=== PATIENT | female | born 1985 | race Caucasian/White ===

== ENCOUNTER → 2017-08-17 | Outpatient (CLI) | payer OTHER ==
--- NOTE | 2017-08-17 14:17 | FL ---
EXAMINATION TYPE: FL UGI air DATE OF EXAM: 08/17/2017 COMPARISON: NONE HISTORY: Abdominal pain TECHNIQUE: A double contrast UGI study is performed. FINDINGS: Esophagus dilates to normal caliber has normal contour to the gastroesophageal junction. Gastroesopha geal junction opens to normal caliber. No intraluminal or extramural defects are evident. The horizon nitish drinking position there is complete stripping of the esophageal bolus. No reflux was evident. Fundus body and antrum of the stomach appear unremarkable. Barium readily empties into the normally p ositioned duodenal cap and sweep. 1 minute 18 seconds fluoroscopy time was provided for the procedure. 21 images are obtained. IMPRESSION: 1. Normal upper GI. 2. Duodenal folds appear to be at the upper limits of normal. Early or mild duodenitis could be consi dered. Consider correlation for H. pylori.
== END | disposition home or self-care (01) ==
LOC: RADFLMAIN 07:58
PROVIDERS: ATTEND Family Medicine
DX: R10.9 Unspecified abdominal pain (principal)
CPT/HCPCS: 74246

== ENCOUNTER 2023-12-24 21:17 | Inpatient (IN) | payer OTHER ==
[~2023-12-24 21:17] MED LIST: KETOROLAC 15 MG/ML 1 ML VIAL ONE; SODIUM CHLORIDE 0.9% 1,000 ML BAG ONE
[2023-12-24] MEDS ORDERED: cefTRIAXone 2 GM VIAL ONE (21:59)
[2023-12-24] MEDS ORDERED: AZITHROMYCIN 500 MG VIAL IVPB ONE (22:46)
[2023-12-24] MEDS ORDERED: SODIUM CHLORIDE 0.9% 250 ML BAG ONE (22:47)
[2023-12-24] MEDS ORDERED: FAMOTIDINE 20 MG/2 ML VIAL ONE (23:59)
[2023-12-24] MEDS ORDERED: SODIUM CHLORIDE 0.9% 50 ML BAG ONE (23:59)
[2023-12-25] MEDS ORDERED: ACETAMINOPHEN TAB 325 MG TAB ONE (05:43)
[2023-12-25] MEDS ORDERED: IPRATROPIUM-ALBUTEROL 3 ML NEB ONE ×3 (07:46→23:59)
[2023-12-25] MEDS ORDERED: diphenhydrAMINE 50 MG/ML 1 ML VIAL ONE ×2 (15:16→20:34)
[2023-12-25] MEDS ORDERED: methylPREDNISolone SOD SUCCI 125 MG/2 ML VIAL ONE (15:17)
[2023-12-25] MEDS ORDERED: HEPARIN SODIUM,PORCINE 5,000 UNIT/ML 1 ML VIAL ONE (20:34)
[2023-12-25] MEDS ORDERED: cefTRIAXone 2 GM VIAL ONE (20:35)
[2023-12-25] MEDS ORDERED: SODIUM CHLORIDE 0.9% 50 ML BAG ONE (23:59)
[2023-12-26] MEDS ORDERED: diphenhydrAMINE 50 MG/ML 1 ML VIAL ONE ×3 (05:36→20:20)
[2023-12-26] MEDS ORDERED: PANTOPRAZOLE 40 MG TABLET PO ONE (05:36)
[2023-12-26] MEDS ORDERED: IPRATROPIUM-ALBUTEROL 3 ML NEB ONE (08:37)
[2023-12-26] MEDS ORDERED: HEPARIN SODIUM,PORCINE 5,000 UNIT/ML 1 ML VIAL ONE ×2 (08:59→20:20)
[2023-12-26] MEDS ORDERED: FUROSEMIDE 10 MG/ML 4 ML VIAL ONE (13:58)
[2023-12-26] MEDS ORDERED: methylPREDNISolone SOD SUCCI 125 MG/2 ML VIAL ONE (18:46)
[2023-12-26] MEDS ORDERED: SODIUM CHLORIDE 0.9% 1,000 ML BAG ONE (23:59)
[2023-12-26] MEDS ORDERED: SODIUM CHLORIDE 0.9% 250 ML BAG ONE (23:59)
[2023-12-27] MEDS ORDERED: methylPREDNISolone SOD SUCCI 125 MG/2 ML VIAL ONE ×3 (06:20→17:29)
[2023-12-27] MEDS ORDERED: diphenhydrAMINE 50 MG/ML 1 ML VIAL ONE ×3 (06:20→22:44)
[2023-12-27] MEDS ORDERED: HEPARIN SODIUM,PORCINE 5,000 UNIT/ML 1 ML VIAL ONE ×2 (09:43→22:44)
[2023-12-27] MEDS ORDERED: SODIUM CHLORIDE 0.9% 250 ML BAG ONE (23:59)
[2023-12-28] MEDS ORDERED: methylPREDNISolone SOD SUCCI 125 MG/2 ML VIAL ONE ×3 (01:16→17:50)
[2023-12-28] MEDS ORDERED: IPRATROPIUM-ALBUTEROL 3 ML NEB ONE (04:28)
[2023-12-28] MEDS ORDERED: PANTOPRAZOLE 40 MG TABLET PO ONE (08:51)
[2023-12-28] MEDS ORDERED: HEPARIN SODIUM,PORCINE 5,000 UNIT/ML 1 ML VIAL ONE (08:51)
[2023-12-28] MEDS ORDERED: methylPREDNISolone SOD SUCCI 40 MG/ML 1 ML VIAL ONE (14:08)
[2023-12-29] MEDS ORDERED: HEPARIN SODIUM,PORCINE 5,000 UNIT/ML 1 ML VIAL ONE (00:54)
[2023-12-29] MEDS ORDERED: diphenhydrAMINE 50 MG/ML 1 ML VIAL ONE (00:54)
[2023-12-29] MEDS ORDERED: methylPREDNISolone SOD SUCCI 125 MG/2 ML VIAL ONE ×2 (00:58→05:10)
[2023-12-29] MEDS ORDERED: IPRATROPIUM-ALBUTEROL 3 ML NEB ONE (04:53)
[2023-12-29] MEDS ORDERED: PANTOPRAZOLE 40 MG TABLET PO ONE (09:11)
--- NOTE | 2024-01-21 19:10 | US ---
Patient Nikia Hirsch ID [id number] Order # EXAMINATION TYPE: US abdomen limited DATE OF EXAM: 12/27/2023 COMPARISON: Comparisons are not available on downtime PACS. INDICATION: Abnormal CT, cholelithiasis, adenomyomatosis. EXAM findings: Head and proximal body the pancreas is normal. Distal tail the pancreas is limited due to bowel gas. Liver has normal echotexture without discrete masses or cysts. Liver measures 17.7 cm which is mildly prominent. Normal less than 15.5 cm. No discrete mass is evident. No biliary dilatation evident. Gallbladder has echogenic foci with posterior shadowing. No gallbladder wall thickening is evident. N o pericholecystic fluid evident. Common bile duct is normal at 0.42 cm. Right kidney measures 10.8 x 3.5 x 4.6 cm. No masses cysts or hydronephrosis evident. IMPRESSION: 1. Cholelithiasis. No suspicious changes to suggest acute cholecystitis.
--- NOTE | 2024-01-23 12:22 | CT ---
SPENCER BARRERA : 1985 EXAM: CT brain without contrast. DATE: 12/24/2023 20:07 INDICATION: Patient age: Reason for study: AMS COMPARISON: None, please note PACS downtime occurred during the radiologist interpretation of these i mages with limited priors/reports.. TECHNIQUE: Multiple axial CT images of the brain were obtained without IV contrast. One or more CT do se reduction strategies were utilized during this examination. Total DLP administered was 1036.9 mGycm. FINDINGS: Extra-axial spaces: No abnormal extra-axial fluid collections. Ventricular system: Within normal limits Cerebral parenchyma: No acute intraparenchymal hemorrhage or mass effect. The snyder-white junction is well differentiated. Cerebellum: Unremarkable. Mass effect: No evidence of midline shift. Intracranial vasculature: unremarkable Soft tissues: Normal. Calvarium/osseous structures: No depressed skull fracture. Paranasal sinuses and mastoid air cells: Clear. Visualized orbits: Orbital contents are intact. IMPRESSION: No acute intracranial process.
--- NOTE | 2024-01-23 12:22 | CT ---
SPENCER BARRERA : 1985 EXAM: CT abdomen and pelvis with IV contrast. DATE: 12/24/2023 19:55 INDICATION: Patient age: Reason for study: abdominal pain, nausea, vomiting. COMPARISON: None, please note PACS downtime occurred during the radiologist interpretation of these i mages with limited priors/reports.. TECHNIQUE: CT abdomen and pelvis with IV contrast. with axial imaging and sagittal and coronal reformats followi ng the administration of 100 cc of Omnipaque 350 IV contrast material.. One or more CT dose reduction strategies were utilized during this examination. Total DLP administered was 1616.5 mGycm. FINDINGS: LOWER CHEST: Left lower lobe patchy airspace opacities. ABDOMEN LIVER: Unremarkable GALLBLADDER AND BILE DUCTS: Incompletely distended with multiple gallstones in the gallbladder lumen. PANCREAS: Unremarkable. SPLEEN: Unremarkable. ADRENAL GLANDS: Unremarkable. KIDNEYS AND URETERS: No evidence of hydronephrosis or renal calculus. The ureters are unremarkable. PELVIS BLADDER: Unremarkable REPRODUCTIVE: Tubular structure near the right ovarian measuring 36 x 22 x 86 mm There may be curvili near suture noted along this cystic structure. ABDOMEN & PELVIS STOMACH AND BOWEL: Stomach and duodenum are unremarkable. No evidence of bowel obstruction. Large am ount stool in the colon. The appendix is normal. PERITONEUM: No evidence of pneumoperitoneum or free fluid. VASCULATURE: No evidence of aortic aneurysm. MUSCULOSKELETAL: No acute osseous abnormalities LYMPH NODES: No gross evidence for lymphadenopathy. SOFT TISSUE/ABDOMINAL WALL: Unremarkable IMPRESSION: 1. Left lower lobe pneumonia. 2. Cholelithiasis with irregular appearance the gallbladder wall. Chronic for signs and symptoms of c holecystitis. Alternatively findings may represent adenomyomatosis. Clinical correlation advised. 3. Tubular structure in the right adnexa possibly representing a dilated fallopian tube versus postsu rgical lymphangioma. Clinical correlation advised.
--- NOTE | 2024-01-25 14:06 | XR ---
SPENCER BARRERA : 1985 EXAM: One view of the chest. DATE: 12/24/2023 20:19 INDICATION: Reason for study: N/V, weakness COMPARISON: . Same day CT. TECHNIQUE: One view of the chest Frontal view of the chest. FINDINGS: Lungs/Pleura: Airspace opacities in left lower lobe better appreciated on same day CT. There is no ev idence of pleural effusion, focal consolidation, or pneumothorax. Pulmonary vascularity: Unremarkable. Heart/mediastinum: Cardiomediastinal silhouette is unremarkable. Musculoskeletal: No acute osseous pathology. Other findings: No significant findings. IMPRESSION: .Left lower lobe airspace disease
--- NOTE | 2024-01-30 09:54 | XR ---
EXAMINATION TYPE: XR chest 1V portable DATE OF EXAM: 01/30/2024 COMPARISON: 12/24/2023 INDICATION: Pneumonia TECHNIQUE: Single frontal view of the chest is obtained. FINDINGS: The heart size is normal. The pulmonary vasculature is normal. The lungs are clear. IMPRESSION: 1. No acute pulmonary process. Follow-up be performed as clinically indicated. [facility], , 01/30/2024 9:51 AM
--- NOTE | 2024-02-09 14:39 | CONS ---
CONSULTATION LOCATION: [address], 4th floor. REASON FOR CONSULTATION: Sepsis, pneumonia. HISTORY OF PRESENT ILLNESS: The patient is a 38-year-old female, who presented to the hospital after apparently the patient did pass out at home. The patient mentioned she has not been feeling well over the last few days. She has been complaining of generalized body aches and not feeling well. The patient did have some nausea, but did not have any vomiting or abdominal pain. No diarrhea or constipation. The patient also complaining of cough, moderate in intensity, but mostly dry in nature. No significant purulent chest pain. The patient did have some headache initially that seemed to have improved, but no photophobia or URI symptoms. With these symptoms, the patient has been evaluated on presentation to the hospital. The patient did have CT of the chest, abdomen, and pelvis, which shows evidence of left lower lobe pneumonia. Cholelithiasis with interval appearance of the gallbladder wall concerning for possible cholecystitis and there was concern for dilated fallopian tube. The patient has been admitted to the hospital. She was started on Rocephin and Zithromax. Infectious Disease was consulted for further management of antibiotic therapy. REVIEW OF SYSTEMS: Positive points have been mentioned in HPI. Rest of systems are negative. PAST MEDICAL HISTORY: Reviewed. PAST SURGICAL HISTORY: Reviewed. FAMILY HISTORY: Reviewed. SOCIAL HISTORY: Reviewed. MEDICATIONS: Currently include the patient is on Rocephin 2 g daily. She is on; 1. Zithromax. 2. DuoNeb. 3. Tylenol. 4. Heparin subcu. 5. Protonix. 6. IV fluid. PHYSICAL EXAMINATION: VITAL SIGNS: Her blood pressure is 113/74 with a pulse of 74, temperature of 97.7, . GENERAL DESCRIPTION: This is a middle-aged female, lying in bed, in no distress. No tachypnea or accessory muscle of respiration use. HEENT: Shows no pallor or scleral icterus. Oral mucous membranes are dry. NECK: Trachea is central. No thyromegaly. LUNGS: Unlabored breathing. Coarse crackles at the left base. No wheeze. HEART: S1, S2. Regular rate and rhythm. ABDOMEN: Soft. No tenderness. No guarding or rigidity. EXTREMITIES: No edema. Feet examination, no rash or masses palpable. NEUROLOGIC: The patient is awake, alert and oriented x3. Mood and affect normal. LABORATORY DATA: . Free T4 is 1.28. Ammonium lactate is 1.4. The patient did have a . Electrolytes are normal. Normal liver enzymes are normal. Hemoglobin is 13.4, white count 8.1. IMAGING STUDIES: CT of abdomen and pelvis report as mentioned in HPI. ASSESSMENT AND PLAN: 1. The patient presented to the hospital with generalized weakness, body aches, headache, also have cough with evidence of left lower lobe pneumonia. Abnormal finding on the clinic examination suspicious for left lower lobe pneumonia, likely community-acquired. 2. Try to obtain sputum for Gram stain, cultures. Check urine for Legionella antigen. 3. Rocephin 2 g continue while waiting for the workup to be completed. Thank you for this consultation. We will follow this patient along with you. NATHANAELL / IJN: [id number] /
--- NOTE | 2024-02-09 14:40 | PN ---
PROGRESS NOTE LOCATION: 463. INTERVAL HISTORY: The patient is afebrile. The patient mentioned feeling better. She is breathing comfortably. No chest pain or shortness of breath. Cough decreased in intensity, remains to be dry in nature. No nausea or vomiting. No abdominal pain or diarrhea. PHYSICAL EXAMINATION: VITAL SIGNS: Blood pressure 113/57, pulse of 63, temperature 98.1. GENERAL DESCRIPTION: This is a middle-aged female, lying in bed, in no distress. RESPIRATORY SYSTEM: Unlabored breathing, decreased intensity of the breath sounds. No wheeze. HEART: S1, S2. Regular rate and rhythm. ABDOMEN: Soft, no tenderness. LABORATORY DATA: White count is normal. DIAGNOSTIC IMPRESSION AND PLAN: The patient presented to the hospital with weakness, syncopal episode, and this patient has been diagnosed with left lower lobe pneumonia, likely community acquired, clinically responding to the Rocephin and Zithromax, finishing therapy of oral Ceftin. Questions and concerns were answered. MMODL / IJN: [id number] /
--- NOTE | 2024-02-09 14:40 | PN ---
PROGRESS NOTE DATE OF SERVICE: 12/27/2023 LOCATION: [address] REASON FOR FOLLOWUP: Left lower lobe pneumonia. INTERVAL HISTORY: The patient is afebrile. The patient is breathing comfortably. She could have a cough in moderate intensity, but not able to bring up any sputum. Denies any nausea, vomiting. No abdominal pain. No diarrhea. PHYSICAL EXAMINATION: VITAL SIGNS: Blood pressure 125/70 with a pulse of 55, temperature is 97.8. She is 96% on room air. GENERAL: The patient is a middle-aged female, lying in bed, in no distress. RESPIRATORY SYSTEM: Unlabored breathing, decreased breath sounds at bases. No wheeze. HEART: S1, S2. Regular rate. ABDOMEN: Soft. No tenderness. EXTREMITIES: No edema of the feet. LABORATORY DATA: Cultures are currently pending. DIAGNOSTIC IMPRESSION AND PLAN: The patient has left lower lobe pneumonia, likely community-acquired, seemed to have clinically responded to the Rocephin and Zithromax. Continue to try to bring up the sputum. Follow up on the blood work. Questions were answered. MMODL / IJN: [id number] /
--- NOTE | 2024-02-10 15:25 | PN ---
PROGRESS NOTE LOCATION: 463. REASON FOR FOLLOWUP: Left lower lobe pneumonia. INTERVAL HISTORY: The patient is afebrile. The patient is breathing comfortably on room air. The patient denies having any chest pain or shortness of breath. Cough decreased in intensity. No nausea, vomiting. No abdominal pain or diarrhea. PHYSICAL EXAMINATION: VITAL SIGNS: Blood pressure 104/69, pulse of 97, temperature 98, she is 98% on room air. GENERAL APPEARANCE: The patient is a middle-aged female, lying in bed, in no distress. RESPIRATORY SYSTEM: Unlabored breathing, decreased breath sounds in the bases. No wheeze. HEART: S1, S2. Regular rate and rhythm. ABDOMEN: Soft. No tenderness. LABORATORY DATA: Creatinine 0.63. White count is 10.63. Blood, sputum culture as well as urine for Legionella antigen is pending. DIAGNOSTIC IMPRESSION AND PLAN: Patient with left lower lobe pneumonia, likely community-acquired. The patient is currently on Levaquin and Zithromax. We will discontinue Zithromax. Continue Levaquin. Plan to finish therapy with oral Levaquin and close outpatient followup. MMODL / IJN: [id number] /
--- NOTE | 2024-02-16 15:12 | CONS ---
CONSULTATION REASON FOR CONSULTATION: Abdominal pain. HISTORY OF PRESENT ILLNESS: This is a female who is admitted to the hospital with complaints of abdominal pain nausea. The patient was found to have gallstones. The patient also had evidence of left lower lobe pneumonia. The patient underwent ultrasound, which shows possible cholelithiasis. She is currently asymptomatic. PAST MEDICAL HISTORY: Please see notes in the chart. PHYSICAL EXAMINATION: VITAL SIGNS: Stable. ABDOMEN: Soft. There is no significant tenderness. Cholelithiasis with attack of pain a week ago. The patient will be observed currently. She will follow up as an outpatient. MMODL / IJN: [id number] /
== END 2023-12-29 16:28 | disposition home or self-care (01) | DRG 720 ==
LOC: 4SSUR 21:17
PROVIDERS: ADMIT Hospitalist; ATTEND Hospitalist
DX: A41.9 Sepsis, unspecified organism (principal); J18.9 Pneumonia, unspecified organism; K80.20 Calculus of gallbladder without cholecystitis without obstruction; N83.8 Other noninflammatory disorders of ovary, fallopian tube and broad ligament; Z79.899 Other long term (current) drug therapy
CPT/HCPCS: 36600; 70450; 71045; 74177; 76705; 82784; 84145; 84481; 86738; 87040; 87070; 87205; 87449; 93005; 94640; 94760; 96361; 96374; 99285